=== PATIENT | female | born 1970 | race Caucasian/White ===

== ENCOUNTER 2021-12-21 17:31 | Emergency (ER) | payer OTHER, SELFPAY ==
--- NOTE | 2021-12-21 18:43 | HMH.EDUTC ---
[facility] [place] Clinical Impression: COVID-19 Disposition: Home, Self-Care Condition on Discharge: Good Instructions: DI for COVID-19 (Suspected or Confirmed ), Preventing the Spread of Coronavirus Discharge Instructions Additional Instructions: Drink plenty of fluids. Take tylenol or ibuprofen for pain or fever. Take the medications as directed. Follow up with your regular doctor. GO TO THE ER FOR ANY WORSENING SYMPTOMS Quarantine. Notify your school or workplace of your results and follow their instructions regarding return to work/school. The cough medication (promethazine dm) will make you drowsy, so don't drive or operate heavy machinery after taking it. Prescriptions: Promethazine/Dextromethorphan [Promethazine-Dm Syrup] 5 ml PO Q6HP PRN #240 ml PRN Reason: Cough Transmission Status: Received by [facility] Ibuprofen [Ibuprofen 800mg Tablet] 800 mg PO Q8HP PRN #30 tab PRN Reason: Moderate Pain Transmission Status: Received by [facility] Ondansetron [Zofran 4mg ODT] 4 mg PO Q8HP PRN #20 tab PRN Reason: Nausea Transmission Status: Received by [facility] Benzonatate [Benzonatate 100mg cap] 100 mg PO TIDP PRN #30 cap PRN Reason: Cough Transmission Status: Received by [facility] Referrals: Provider,Referral, MD [Primary Care Provider] - Time of Disposition: 18:56 Medical Decision Making - Medical Records Medical records reviewed: No: I reviewed the patient's medical records. - Toby Inquiry Pt receiving controlled substance: No Vital Signs: 12/21/21 18:46 12/21/21 19:05 Temperature 98.4 F 98.4 F Temperature Source Oral Pulse Rate 91 H Pulse Rate [Left] 91 H Respiratory Rate 17 17 Blood Pressure 138/90 Blood Pressure [Right Arm] 138/90 Blood Pressure Mean [Right Arm] 106 02 Sat by Pulse Oximetry 99 [facility] [place] HPI - General Stated complaint: Covid test Time Seen by Provider: 12/21/21 18:43 - History of Present Illness Provider Complaint: She is here to be tested for covid-19. She c/o cough, body aches, low grade fever and malaise. - Related Data Previous Rx's Medication Instructions Recorded Azithromycin [Z-Yusuf 250mg Tab*] 250 mg PO UD DOSE PK #6 tab 08/22/18 guaiFENesin [Mucinex 600mg tablet] 600 mg PO BIDP PRN #30 tab.er.12h 08/22/18 Benzonatate [Benzonatate 100mg 100 mg PO TIDP PRN #30 cap 12/21/21 cap] Ibuprofen [Ibuprofen 800mg 800 mg PO Q8HP PRN #30 tab 12/21/21 Tablet] Ondansetron [Zofran 4mg ODT] 4 mg PO Q8HP PRN #20 tab 12/21/21 Promethazine/Dextromethorphan 5 ml PO Q6HP PRN #240 ml 12/21/21 [Promethazine-Dm Syrup] Allergies Allergy/AdvReac Type Severity Reaction Status Date / Time No Known Allergies Allergy Verified 12/21/21 18:52 [facility] History - Hepatitis A Screen Attestation statement:: This patient has been screened for Hepatitis A risk factors. I have reviewed the patient's past medical history: Yes Medical History: Denies:: Cancer, Diabetes Mellitus Type 1, Diabetes Mellitus Type 2, MRSA Other Surgeries: Yes: No Previous Surgery Amputation: No - Social History Smoking Status: Current every day smoker Tobacco Type: cigarettes # Packs/Day (cigarettes): 1 Alcohol Intake: never Occupational Status: employed Housing: house Household Members: family Family Hx:: Hypertension, Cancer ROS Obtained: Yes All systems reviewed & no additional complaints - Constitutional Constitutional: Reports as per HPI - Eyes Eyes: Denies eye discharge - ENT Ears, Nose, Mouth, and Throat: Reports as per HPI - Cardiovascular Cardiovascular: Denies chest pain - Respiratory Respiratory: Reports as per HPI Physical Exam - General General appearance: alert, in no apparent distress - Head Head exam: atraumatic, normocephalic, normal inspection - Eye Eye exam: Present: normal appearance, PERRL, EOMI - ENT ENT e
[2021-12-21 18:46] VITALS: BP 138/90; PULSE 91; RESP 17; TEMP 36.9; O2SAT 99; BMI 32.0
[2021-12-21 19:05] VITALS: BP 138/90; PULSE 91; RESP 17; TEMP 36.9
== END 2021-12-21 19:06 | disposition home or self-care (01) ==
PROVIDERS: Emergency Provider Nurse Practitioner Family
DX: U07.1 COVID-19 (principal)
CPT/HCPCS: 99212; C9803; G0463; U0003; U0005